=== PATIENT | female | born 1995 | race Caucasian/White ===

== ENCOUNTER → 2016-07-02 | Day surgery (SDC) | payer OTHER ==
[~2016-07-02] VITALS: Ht 162.6 cm; Wt 60.8 kg
[~2016-07-02] MED LIST: BUPIVACAINE-EPI 0.5%-1:200000 50 ML VIAL. ONE; CEFAZOLIN 2GM PREMIX 50 ML IV PRN; DEXAMETHASONE SOD PHOS 20 MG/5 ML VIAL. ONE; DIPH25CA58 PO; FENTANYL PF 100 MCG/2 ML VIAL. IV PRN; FENTANYL PF 250 MCG/5 ML VIAL. ONE; GLYCOPYRROLATE 1 MG/5 ML VIAL. ONE; HYDROMORPHONE 2 MG/ML VIAL. IV PRN; IOHEXOL 300 MG/ML 50 ML VIAL. ONE; IV RINGERS,LACTATED 1000ML 1,000 ML IV SCH; KETOROLAC 30 MG/ML SYRINGE FOR OR. INJ ONE; LIDOCAINE 1% 1 ML SYRINGE. ID PRN; LIDOCAINE 2% 100 MG/5 ML DISP.SYRIN. ONE; MELA5CAP PO; MIDAZOLAM HCL 2 MG/2 ML VIAL. ONE; MORPHINE SULFATE 2 MG/ML DISP.SYRIN. IV PRN; NAPR220C4 PO; NEOSTIGMINE METHYLSULFATE 5 MG/5 ML SYRINGE. ONE; ONDANSETRON PF 4 MG/2 ML VIAL. IV PRN; ONDANSETRON PF 4 MG/2 ML VIAL. ONE; OXYC-323 PO; OXYCODONE/APAP 5/325 TABLET. PO PRN; PROCHLORPERAZINE 10 MG/2 ML VIAL. IV PRN; PROPOFOL 20 ML IV ONE; ROCURONIUM 50 MG/5 ML VIAL. ONE; SURGICEL HEMOSTAT 4X8 EACH. ONE
[2016-07-02 13:04] LABS: NEG OBC UR NEG; POS OBC UR POS
--- NOTE | 2016-07-02 13:55 | PDOC4 ---
Operative Note Operative Note Operative Note: Preoperative Diagnosis: Biliary dyskinesia Postoperative Diagnosis: Same Procedure: Laparoscopic cholecystectomy with intraoperative cholangiogram Surgeons: Abdiel Anesthesia: Gen. Estimated Blood Loss: 10 mL Specimen: Gallbladder to pathology Drains: None Complications: None Indications: The patient is a 21 year old female who is been experiencing recurrent right upper quadrant pain and nausea. Her evaluation and presentation raised concern for biliary dyskinesia. Surgical treatment was offered by means of a laparoscopic cholecystectomy. The risks of surgery were discussed which include bleeding, infection, bile duct injury, bile leak, pain, the potential for additional surgeries or procedures. The patient understands and would like to proceed. Description: The patient was taken to the operating room and laid supine on the operating table. General anesthesia was performed. The abdomen was prepped with ChloraPrep and draped in a standard surgical fashion. A small infraumbilical incision was made with a scalpel. The Veress needle was then inserted and a pneumoperitoneum was then created. A 5 mm trocar was then inserted and the laparoscope was introduced. In the upper midabdomen a 5 mm trocar was inserted and in the right upper quadrant two 2.3 mm mini lap graspers were inserted. The gallbladder was retracted cephalad. The cystic duct was dissected free from surrounding tissues. One clip was placed on the duct near the gallbladder junction. An opening was made in the duct and a cholangiocatheter placed within and secured with a clip. Using contrast dye and fluoroscopy an intraoperative cholangiogram was performed that appeared unremarkable. The clip and catheter were then withdrawn. Three clips were placed on the cystic duct and it was divided. The cystic artery was then identified, dissected free, doubly clipped and divided as well. The gallbladder was then mobilized away from the liver with cautery. The umbilical 5 millimeter trocar was exchanged for an 11 millimeter trocar. The gallbladder was then placed in an endoscopic bag and extracted at the umbilical trocar site. The fascia there was closed with an 0 Vicryl suture. All blood and irrigation fluid was suctioned and hemostasis was good. The remaining ports were removed and the pneumoperitoneum was relieved. The skin incisions were injected with half percent Marcaine with epinephrine, and all were closed using 4-0 Monocryl suture. Steri-Strips and dressings were then applied. The patient tolerated the procedure well and was sent to the recovery room in stable condition. At the end of the case all counts were correct. JOSE ASTUDILLO MD Jul 02, 2016 13:55
--- NOTE | 2016-07-02 13:55 | RAD ---
EXAM: Intraoperative cholangiogram. HISTORY: Cholecystectomy. COMPARISON: None. FINDINGS: 2 fluoroscopic images were obtained during an intraoperative radiograph. The images demonstrate contrast opacification of the downstream biliary tree, cystic duct and common bile duct. No retained stone or stricture is seen. There is partial visualization of an esophageal monitor. The total fluoroscopy time is 0.12 minutes. IMPRESSION: Intraoperative cholangiogram without evidence of a retained stone or stricture.
--- NOTE | 2016-07-02 13:57 | DISCH ---
DISCHARGE INSTRUCTIONS Condition on Discharge Condition on Discharge: Stable Activity After Discharge Activity Instructions for Disc: Other, see below (no lifting over 20 lbs X 2 weeks) Driving Instructions after Dis: Other, see below (no driving while taking pain meds) Diet after Discharge Diet after Discharge: Regular Wound Incision Care Wound/Incision Care: Other, see below (may remove bandaids tomorrow and shower) Follow-Up Follow up with: Dr Astudillo in 2 weeks, call for appt [phone] JOSE ASTUDILLO MD Jul 02, 2016 13:57
[2016-07-02] MEDS: FENTANYL PF 100 MCG/2 ML VIAL. IV PRN ×2 (14:24→14:38)
[2016-07-02 15:45] VITALS: BP 98/50
--- NOTE | 2016-07-03 13:17 | PATHOLOGY ---
PATHOLOGY REPORT * * * * * * * * FINAL DIAGNOSIS: Gallbladder, cholecystectomy: - Chronic cholecystitis, mild. COMMENT: There are no calculi identified within the gallbladder lumen or specimen container. There is no evidence of malignancy. (JPM:all; d/t: 07/03/2016) REPORT ELECTRONICALLY SIGNED BY: Tanvir Tobin M.D. DATE/TIME: 07/03/2016 13:08 * * * * * * * * GROSS PATHOLOGY: Received in formalin labeled "Mckayla Mckeon, gallbladder and its contents," is a 6.9 x 2.7 x 2.7 cm, intact gallbladder with blue-berrios serosal surfaces. Opening the gallbladder reveals a velvety, light funez mucosa and an average wall thickness of 0.1 cm. Calculi are not present and no masses are noted grossly. Health Information Administrator sections from the body and fundus are submitted along with the proximal margin in cassette A1. (CAA; 07/02/2016) INITIAL CPT CODE(S): A; 88800 Professional services performed by [facility] at [address] [address] Technical services performed by [facility] at [address] [place] [address], [facility] [address] [address]. [facility],-BAKARI Jaramillo, [address] [place] [address] phone: [phone] fax: [phone] SPECIMEN(S) RECEIVED: A.Gallbladder and its contents CLINICAL HISTORY: Biliary dyskinesia PATIENT: MCKAYLA MCKEON /AGE: 902/25/1995 (Age: 21) PATIENT #: [id number] ALT CASE #: SPECIMEN COLLECTION DATE: 07/02/2016 SPECIMEN RECEIVED DATE: 07/02/2016 [facility] - [id number] [place] [address] - PHONE: [phone] * * * END OF REPORT * * *
== END | disposition home or self-care (01) ==
LOC: SURG 11:29
PROVIDERS: ATTEND Surgery
DX: K81.1 Chronic cholecystitis (principal); F41.9 Anxiety disorder, unspecified
CPT/HCPCS: 47563; 74300; 81025; C1769; C1782; J0690; J1100; J1885; J2250; J2405; J2704; J2710; J3010; J3490; J7030; J7120; Q9967; 88304